=== PATIENT | male | born 1955 | race Caucasian/White ===

== ENCOUNTER 2023-09-05 16:50 | Inpatient (IN) ==
--- NOTE | 2023-09-05 17:04 | ED Triage Note ---
Date of Service September 05, 2023 Provider in Triage Author: Columba Marx History of Present Illness This patient was briefly evaluated while in triage. An abbreviated physical exam was performed. This patient is a 68-year-old Male who presents to the ED for evaluation of an ileus. He was seen at [facility] ER yesterday and had CT scan that showed an ileus. Saw his PCP today who felt that he needed to be admitted b/c he was not moving his bowels or passing gas. Having worsening abdominal pain. No nausea or vomiting. Physical Exam GENERAL: Non-toxic and in no acute distress. HEENT: Pupils equal. No obvious scleral icterus. HEART: Regular rate and rhythm. LUNGS: Clear to auscultation. No accessory muscle use. ABDOMEN: Soft, mildly distended, mildly tender to palpation. No guarding or rigidity. NEURO: Alert and oriented. No obvious neurological deficits on quick neuro exam. Initial orders for labs and / or imaging were placed and patient was placed in the waiting area until a bed is available. Please see further documentation for the full ED course. MDM / Impression Impression Impression: Ileus
--- NOTE | 2023-09-05 17:28 | XRay Report ---
SINGLE VIEW CHEST CLINICAL HISTORY: Generalized abdominal pain. FINDINGS: A PA chest radiograph is obtained. No prior studies are available for comparison at the nehemias e of dictation. The cardiomediastinal silhouette is unremarkable. The lungs and pleural spaces are cl ear. No pneumothorax is seen. The bony thorax is grossly intact. Fusion hardware is noted in the lowe r cervical spine. IMPRESSION: No active disease in the chest. ACT 112: Negative or not required by law. Electronically signed by: Carter De La Garza M.D. 09/05/2023 5:27 PM
[2023-09-05] MEDS: SODIUM CHLORIDE 0.9% 500 ML IV STA (18:16)
[2023-09-05 18:41] LABS: Basophils # (auto) 0.01 K/uL (0.00-0.20); Basophils % (auto) 0.2 %; Eosinophils # (auto) 0.13 K/uL (0.00-0.50); Hematocrit (blood only) 39.2 % (42.0-52.0); Hemoglobin 13.7 g/dl (14.0-18.0); Immature Granulocytes # (auto) 0.01 K/uL (0.01-0.20); Immature Granulocytes % (auto) 0.2 %; Lymphocytes # (auto) 1.39 K/uL (1.20-3.40); Lymphocytes % (auto) 32.6 %; Mean Corpuscular Hemoglobin 31.1 pg (25.0-34.0); Mean Corpuscular Hgb Conc 34.9 g/dL (32.0-36.0); Mean Corpuscular Volume 88.9 fL (80.0-100.0); Mean Platelet Volume 8.9 fL (9.4-12.4); Monocytes # (auto) 0.37 K/uL (0.11-0.59); Monocytes % (auto) 8.7 %; Neutrophils # (auto) 2.36 K/uL (1.40-6.50); Neutrophils % (auto) 55.3 %; Platelet Count 160 K/uL (130-400); RDW Coefficient of Variation 12.3 % (11.5-14.5); RDW Standard Deviation 40.3 fL (36.4-46.3); Red Blood Count 4.41 M/uL (4.70-6.10); White Blood Count 4.27 K/ul (4.8-10.8)
[2023-09-05 19:00] LABS: Albumin Globulin Ratio 1.6 (0.9-2); Albumin Level 4.6 gm/dl (3.4-5.0); BUN Creatinine Ratio 14.1 (10-20); Calcium 9.8 mg/dl (8.6-10.3); Creatinine Clr Calc Pharmacy 88.3 ml/min; Est GFR (African American) 105.2 ml/min; Est GFR (Non-African American) 90.8 ml/min; Globulin 2.8 gm/dl (2.5-4.0); Potassium 3.9 mmol/L (3.5-5.1); Total Protein 7.4 gm/dl (6.0-8.3)
[2023-09-05 19:05] LABS: Troponin I High Sensitivity 4.3 pg/ml (0-20)
--- NOTE | 2023-09-05 19:18 | XRay Report ---
KUB CLINICAL HISTORY: Generalized abdominal pain. FINDINGS: 2 AP supine abdominal radiographs are obtained. No prior studies are available for comparis on at the time of dictation. Moderate fecal retention is seen throughout the colon. There is a disten ded loop of bowel in the left midabdomen which measures up to 3.5 cm. There is no evidence of high-gr sharmila obstruction. No abnormal abdominal calcifications are seen. Phleboliths are observed in the pelvi s. No evidence of intraperitoneal free air is seen on these supine images the bony structures appear intact. There is moderate lumbosacral spondylosis. IMPRESSION: 1. There is no radiographic evidence of high-grade obstruction. 2. There is nonspecific gaseous distention of a small bowel in the left midabdomen. Ileus or partial obstruction could potentially have this appearance. Clinical correlation will be required. Electronically signed by: Carter De La Garza M.D. 09/05/2023 7:17 PM
[2023-09-05 20:55] LABS: Appearance Urine Clear (Clear); Bilirubin Urine Negative (Negative); Blood Urine Negative (Negative); Color Urine Yellow; Glucose Urine UA Negative (Negative); Ketones Urine Trace (Negative); Leukocyte Esterase Urine Negative (Negative); Nitrite Urine Negative (Negative); Protein Urine Negative (Negative); Specific Gravity Urine 1.007 (1.000-1.030); Urobilinogen Urine Negative (Negative); pH Urine 6.5 (4.5-7.5)
--- NOTE | 2023-09-05 21:06 | Emergency Department Note ---
Impression & Plan Ileus ED Provider Note NAME: BONNY FELDER AGE: 68 SEX: M : 1955 ARRIVES VIA: Walk-In INFORMANT: Patient, ED PROVIDER(S): Samuel Sapp MD CHIEF COMPLAINT: Ileus HPI: This is a 68-year-old male presenting for possible ileus. Patient states that he had severe abdominal pain last night where he was on all fours having excruciating abdominal pain. He notes nausea vomiting at that time. He then went to an outside ER where he had CT of the abdomen/pelvis as well as chest. This revealed patient had a possible ileus without obvious obstruction. Otherwise there is some slight abdominal free fluid as well as mesenteric stranding which could be related to panniculitis. Patient was offered admission versus discharge. Patient elected for discharge. He notes that his symptoms today have been somewhat better however still having pain specifically with eating. He drank fluids and had excruciating abdominal pain again. He notes he still has a slight abdominal pain at this time. Otherwise no persistent nausea, vomiting. He states he has not been passing gas. Otherwise he went to his primary care physician who states he feels he was concerned and should be reevaluated in the ER. ROS: See above HPI for pertinent positives & negatives. A total of 10 systems reviewed and were otherwise negative. PAST MEDICAL HISTORY: See Below PAST SURGICAL HISTORY: See Below FAMILY HISTORY: See Below SOCIAL HISTORY: See Below HOME MEDICATIONS: See Below ALLERGIES: See Below VITALS: See Below PHYSICAL EXAMINATION: General: resting comfortably in no acute distress Head: Normocephalic and atraumatic Eyes: Normal inspection, extraocular muscles intact Ear, nose, throat: Normal external exam Neck: Normal range of motion Respiratory: lungs clear to auscultation bilaterally Cardiovascular: Regular rate/rhythm, no murmur GI: Mild distended, soft, hyperactive bowel sounds, no about rebound or guarding Extremities: nontender, moves all extremities Neuro: The patient awake and alert, appropriately conversive, no focal deficits, symmetric faces Skin: Warm, dry, and intact MEDICAL DECISION MAKING: This is a 68-year-old male presenting for possible ileus versus panniculitis. Patient notes he has had abdominal pain specifically with drinking/eating. Symptoms are slightly better but patient still having difficulty with eating. His x-ray here does reveal signs of ileus without high-grade bowel obstruction. He does have a CT scan of the abdomen/pelvis with results as stated in HPI. His blood work is reassuring with only slight hyponatremia, no transaminitis or lipase elevation. Patient given fluid bolus here. Will admit as patient request admission at this time due to feeling unwell/able to eat and ileus. Chest Xray independently interpreted by me showing no pneumothorax, focal opacity, or pleural effusions Differential diagnosis: SBO, ileus, pancreatitis, volvulus, mesenteric ischemia ER treatment provided: See below Diagnostics interpreted by me: ECG: None Cardiac Monitoring: An order was placed for continuous cardiac monitoring. The monitor shows a rate of 67 with sinus rhythm. Laboratory studies: As stated above and show below. Imaging studies: See below. Past Med/Surg History Surgical History History of spinal fusion cervical spinal fusion. [facility]. 2013 Family History Father Cancer Heart disease Brother Heart disease Diabetes Cancer Social History Smoking Status: Never smoker Hx Alcohol Use: Yes (2-3 beers 2-3 times a week) Alcohol type: beer Alcohol Intake Frequency: 2-3 x/Week Hx Substance Use: No Feels Safe at Home: Yes Allergies Allergies Allergy/AdvReac Type Severity Reaction Status Date / Time No Known Allergies Allergy Verified 09/05/23 17:04 Home Meds Home Medications Medication Instructions Recorded Confirmed ascorbic acid (vitamin C) 1,000 mg 1,000 mg PO DAILY 09/05/23 09/05/23 tablet (Vitamin C) cholecalciferol (vitamin D3) 25 25 mcg PO DAILY 09/05/23 09/05/23 mcg (1,000 unit) tablet (Vitamin D3) omega-3 fatty acids 1,000 mg 1,000 mg PO DAILY 09/05/23 09/05/23 capsule polyethylene glycol 3350 17 gram 17 g PO DAILY PRN Constipation 09/05/23 09/05/23 oral powder packet (Miralax) sennosides 8.6 mg tablet (Senokot) 8.6 mg PO DAILY PRN Constipation 09/05/23 09/05/23 Results & Data (ED) Vital Signs Vital Signs - 24 hr 09/05/23 17:00 09/05/23 20:29 09/05/23 20:29 Temperature 36.5 C Temperature Source Temporal Artery Scan Pulse Rate 72 Pulse Rate [Apical] 68 Pulse Rhythm [Apical] Regular Respiratory Rate 16 18 Respiratory Effort / Characteristics Non-Labored Spontaneous Respiratory Depth Normal Respiratory Pattern Regular Blood Pressure 174/95 H Blood Pressure [Right Arm] 180/90 H Blood Pressure Mean 121 Blood Pressure Mean [Right Arm] 120 Blood Pressure Position [Right Arm] Lying Pulse Oximetry 98 98 98 Oxygen Delivery Method Room Air Room Air Room Air Sepsis New/Unexplained Change in Mental Status No Sepsis Action Taken by Nursing No Action Required 09/05/23 20:45 Temperature Temperature Source Pulse Rate 71 Pulse Rate [Apical] Pulse Rhythm [Apical] Respiratory Rate Respiratory Effort / Characteristics Respiratory Depth Respiratory Pattern Blood Pressure Blood Pressure [Right Arm] Blood Pressure Mean Blood Pressure Mean [Right Arm] Blood Pressure Position [Right Arm] Pulse Oximetry Oxygen Delivery Method Sepsis New/Unexplained Change in Mental Status Sepsis Action Taken by Nursing Laboratory Data 09/05/23 18:12 09/05/23 18:12 Lab Results 09/05/23 09/05/23 Range/Units 18:12 19:45 WBC 4.27 L (4.8-10.8) K/ul RBC 4.41 L (4.70-6.10) M/uL Hgb 13.7 L (14.0-18.0) g/dl Hct 39.2 L (42.0-52.0) % MCV 88.9 (80.0-100.0) fL MCH 31.1 (25.0-34.0) pg MCHC 34.9 (32.0-36.0) g/dL RDW Std Deviation 40.3 (36.4-46.3) fL RDW Coeff of Bridget 12.3 (11.5-14.5) % Plt Count 160 (130-400) K/uL MPV 8.9 L (9.4-12.4) fL Immature Gran % (Auto) 0.2 % Neut % (Auto) 55.3 % Lymph % (Auto) 32.6 % Atlantic % (Auto) 8.7 % Eos % (Auto) 3.0 % Baso % (Auto) 0.2 % Neut # (Auto) 2.36 (1.40-6.50) K/uL Lymph # (Auto) 1.39 (1.20-3.40) K/uL Atlantic # (Auto) 0.37 (0.11-0.59) K/uL Eos # (Auto) 0.13 (0.00-0.50) K/uL Baso # (Auto) 0.01 (0.00-0.20) K/uL Immature Gran # (Auto) 0.01 (0.01-0.20) K/uL Sodium 133 L (136-145) mmol/L Potassium 3.9 (3.5-5.1) mmol/L Chloride 98 (98-107) mmol/L Carbon Dioxide 29 (21-32) mmol/L Anion Gap 6 (3-11) BUN 12 (6-23) mg/dl Creatinine 0.85 (0.6-1.4) mg/dl Est Cr Clr Drug Dosing 88.3 ml/min Est GFR ( Amer) 105.2 ml/min Est GFR (Non-Af Amer) 90.8 ml/min BUN/Creatinine Ratio 14.1 (10-20) Glucose 92 (70-99(Fasting)) mg/dl Calcium 9.8 (8.6-10.3) mg/dl Total Bilirubin 1.0 (0.2-1.0) mg/dl AST 26 (13-39) U/L ALT 25 (7-52) U/L Alkaline Phosphatase 56 (34-104) U/L Troponin I High Sens 4.3 (0-20) pg/ml Total Protein 7.4 (6.0-8.3) gm/dl Albumin 4.6 (3.4-5.0) gm/dl Globulin 2.8 (2.5-4.0) gm/dl Albumin/Globulin Ratio 1.6 (0.9-2) Lipase 24 (11-82) U/L Urine Color Yellow Urine Appearance Clear (Clear) Urine pH 6.5 (4.5-7.5) Ur Specific Kennan 1.007 (1.000-1.030) Urine Protein Negative (Negative) Urine Glucose (UA) Negative (Negative) Urine Ketones Trace H (Negative) Urine Blood Negative (Negative) Urine Nitrite Negative (Negative) Urine Bilirubin Negative (Negative) Urine Urobilinogen Negative (Negative) Ur Leukocyte Esterase Negative (Negative) Administered Medications Doxycycline Hyclate 100 mg/ (Dextrose) 100 mls @ 50 mls/hr IV NOW STA Stop: 09/06/23 00:21 Last Admin: 09/05/23 23:22 Dose: 50 mls/hr Documented By: HUBERT Discontinued Medications Hydralazine HCl (Hydralazine Hcl 20 Mg/Ml Vial) 5 mg IV NOW STA Stop: 09/05/23 21:19 Last Admin: 09/05/23 21:58 Dose: Not Given Documented By: HUBERT Sodium Chloride (Nss) 500 mls @ 999 mls/hr IV .Q31M STA Stop: 09/05/23 17:34 Last Infusion: 09/05/23 20:28 Dose: Infused Documented By: Admin: 09/05/23 18:16 Dose: 999 mls/hr Documented By: SHANTEL Imaging Data Radiologist's Impression: Chest X-Ray 09/05/23 17:04 SINGLE VIEW CHEST CLINICAL HISTORY: Generalized abdominal pain. FINDINGS: A PA chest radiograph is obtained. No prior studies are available for comparison at the time of dictation. The cardiomediastinal silhouette is unremarkable. The lungs and pleural spaces are clear. No pneumothorax is seen. The bony thorax is grossly intact. Fusion hardware is noted in the lower cervical spine. IMPRESSION: No active disease in the chest. ACT 112: Negative or not required by law. Electronically signed by: Carter De La Garza M.D. 09/05/2023 5:27 PM KUB X-Ray 09/05/23 17:04 KUB CLINICAL HISTORY: Generalized abdominal pain. FINDINGS: 2 AP supine abdominal radiographs are obtained. No prior studies are available for comparison at the time of dictation. Moderate fecal retention is seen throughout the colon. There is a distended loop of bowel in the left midabdomen which measures up to 3.5 cm. There is no evidence of high-grade obstruction. No abnormal abdominal calcifications are seen. Phleboliths are observed in the pelvis. No evidence of intraperitoneal free air is seen on these supine images the bony structures appear intact. There is moderate lumbosacral spondylosis. IMPRESSION: 1. There is no radiographic evidence of high-grade obstruction. 2. There is nonspecific gaseous distention of a small bowel in the left midabdomen. Ileus or partial obstruction could potentially have this appearance. Clinical correlation will be required. Electronically signed by: Carter De La Garza M.D. 09/05/2023 7:17 PM Discharge Plan Visit Data Chief Complaint: Constipation Stated Complaint: ELLIES/COLLEN, ABD PAIN, CONSTIPATION ED Provider: Samuel Sapp Discharge Problem: Ileus Discharge Instructions Interventions: ED Discharge Assessment Last Done: 09/05/23 23:53
--- NOTE | 2023-09-05 21:20 | History & Physical Report ---
Date of Service September 05, 2023 Assessment & Plan (1) Abdominal pain: (2) Ileus: (3) Elevated blood pressure reading: Plan: HPI, ROS, PE completed by myself, Liz Tabor PA-C Assessment and Plan per Dr Thurman. See addendum. History of Present Illness Chief Complaint: abdominal pain Primary Care Provider: RICK MOTA Patient is 68 year old male without significant PMH presented to ER with c/o abdominal pain x 1 day. History obtained from patient and patient's daughter. Patient states yesterday had 1 bowel movement. Reports later in the day started with mid abdominal pain that he describes as sharp. Wells like pain radiated to back. He denies any nausea or vomiting. Patient was seen at [facility] in [place] early hours of 09/05/2023. Patient was diagnosed with ileus and reports was given option for admission or discharge. Patient states she was to be discharged home. Since being home reports continued abdominal pain. He tried sipping on water however had increased abdominal pain. Patient denies any vomiting. Has not been passing flatus. He has not had any BM today. Has not eaten since 18:00 on 09/04/23. With no improvement of his symptoms he decided to return to ER for further evaluation. Patient states his daughter lives in [facility] so decided to come to [facility] for evaluation. Denies fever/chills, diaphoresis, PALOMINO, dizziness, syncope, vision changes, neck pain, CP, SOB, orthopnea, palpitations, cough, sore throat, choking, otalgia, rhinorrhea, paresthesias, weakness, extremity weakness, extremity edema, rashes, urinary symptoms. Patient has prior ER imaging reports for review: 09/05/23 CTA chest impression: No PE, noncalcified nodule in right upper lobe 09/05/2023: CTA abdomen pelvis impression: No evidence of abdominal aortic dissection or aneurysm. Mildly prominent fluid-filled small bowel loops in the abdomen, which may represent ileus. Small amount of free fluid in the pelvis. Mild nonspecific mesentery fat stranding in the mid abdomen, possibility of panniculitis cannot be excluded Labs at that time without leukocytosis and lactate and lipase WNL. Allergies Allergy/AdvReac Type Severity Reaction Status Date / Time No Known Allergies Allergy Verified 09/05/23 17:04 Home Medications Medication Instructions Recorded Confirmed Type ascorbic acid (vitamin C) 1,000 mg 1,000 mg PO DAILY 09/05/23 09/05/23 History tablet (Vitamin C) cholecalciferol (vitamin D3) 25 25 mcg PO DAILY 09/05/23 09/05/23 History mcg (1,000 unit) tablet (Vitamin D3) omega-3 fatty acids 1,000 mg 1,000 mg PO DAILY 09/05/23 09/05/23 History capsule polyethylene glycol 3350 17 gram 17 g PO DAILY PRN Constipation 09/05/23 09/05/23 History oral powder packet (Miralax) sennosides 8.6 mg tablet (Senokot) 8.6 mg PO DAILY PRN Constipation 09/05/23 09/05/23 History Past Med/Surg History Surgical History History of spinal fusion cervical spinal fusion. [facility]. 2013 Family History Father Cancer Heart disease Brother Heart disease Diabetes Cancer Social History Smoking Status: Never smoker Hx Alcohol Use: Yes (2-3 beers 2-3 times a week) Alcohol type: beer Alcohol Intake Frequency: 2-3 x/Week Hx Substance Use: No Current Living Situation: Alone Feels Safe at Home: Yes Review of Systems Review of Systems: All systems reviewed & are unremarkable except as noted in HPI & below Physical Exam Physical Exam: General: no distress, WDWN Head: normocephalic, atraumatic Eyes: conjunctiva non-injected, anicteric ENT: normal inspection external ears, nose, mucous membranes moist Neck: supple, trachea midline Lungs: clear, no respiratory distress, no wheezing/rhonchi/rales CV: RRR, no murmur, no pretibial edema Abd: hypoactive BS, soft, +tenderness to palpation epigastric and periumbilical region without rebound or guarding Ext: no cyanosis, no calf tenderness Neuro: A&O x 3, no focal deficits noted, normal affect Skin: warm, dry Results & Data Results & Data Vital Signs (Past 12 Hours) Vital Signs Temp Pulse Pulse Resp BP BP Pulse Ox 09/05/23 20:45 71 09/05/23 20:29 98 09/05/23 20:29 68 18 180/90 H 98 09/05/23 17:00 36.5 C 72 16 174/95 H 98 O2 Del Method 09/05/23 20:45 09/05/23 20:29 Room Air 09/05/23 20:29 Room Air 09/05/23 17:00 Room Air Laboratory Results Short CBC 09/05/23 Range/Units 18:12 WBC 4.27 L (4.8-10.8) K/ul Hgb 13.7 L (14.0-18.0) g/dl Hct 39.2 L (42.0-52.0) % Plt Count 160 (130-400) K/uL BMP 09/05/23 18:12 Sodium 133 L Potassium 3.9 Chloride 98 Carbon Dioxide 29 BUN 12 Creatinine 0.85 Glucose 92 Calcium 9.8 Liver Function 09/05/23 Range/Units 18:12 Total Bilirubin 1.0 (0.2-1.0) mg/dl AST 26 (13-39) U/L ALT 25 (7-52) U/L Alkaline Phosphatase 56 (34-104) U/L Albumin 4.6 (3.4-5.0) gm/dl Urine 09/05/23 Range/Units 19:45 Urine Color Yellow Urine Appearance Clear (Clear) Urine pH 6.5 (4.5-7.5) Ur Specific Marlow 1.007 (1.000-1.030) Urine Protein Negative (Negative) Urine Glucose (UA) Negative (Negative) Diagnostic Findings Chest X-Ray 09/05/23 17:04 SINGLE VIEW CHEST CLINICAL HISTORY: Generalized abdominal pain. FINDINGS: A PA chest radiograph is obtained. No prior studies are available for comparison at the time of dictation. The cardiomediastinal silhouette is unremarkable. The lungs and pleural spaces are clear. No pneumothorax is seen. The bony thorax is grossly intact. Fusion hardware is noted in the lower cervical spine. IMPRESSION: No active disease in the chest. ACT 112: Negative or not required by law. Electronically signed by: Carter De La Garza M.D. 09/05/2023 5:27 PM KUB X-Ray 09/05/23 17:04 KUB CLINICAL HISTORY: Generalized abdominal pain. FINDINGS: 2 AP supine abdominal radiographs are obtained. No prior studies are available for comparison at the time of dictation. Moderate fecal retention is seen throughout the colon. There is a distended loop of bowel in the left midabdomen which measures up to 3.5 cm. There is no evidence of high-grade obstruction. No abnormal abdominal calcifications are seen. Phleboliths are observed in the pelvis. No evidence of intraperitoneal free air is seen on these supine images the bony structures appear intact. There is moderate lumbosacral spondylosis. IMPRESSION: 1. There is no radiographic evidence of high-grade obstruction. 2. There is nonspecific gaseous distention of a small bowel in the left midabdomen. Ileus or partial obstruction could potentially have this appearance. Clinical correlation will be required. Electronically signed by: Carter De La Garza M.D. 09/05/2023 7:17 PM Supervising Physician Co-Signing Physician Notes IM ATTENDING : Patient seen and examined. History obtained from patient and records. Concur with salient points upon review of preceding documentation by Ms. Liz Tabor PA-C. I take responsibility for plan of care below. FINAL ASSESSMENT AND PLAN as follows : Abdominal pain Multifactorial ileus Possible panniculitis on CT, patient nontoxic Situational hypertension secondary to above LBBB, patient unaware of previous diagnosis OBS Medical telemetry given BP elevation and LBBB of unknown duration Analgesia Clonidine as needed SBP greater than 160 TTE Re: LBBB Bowel regimen Doxycycline for possible panniculitis on CT DVT prophylaxis. Lovenox subcu Full code Text document was generated using [employer] voice recognition software. It may contain grammatical or spelling errors. Kindly contact undersigned for clarification of any documentation item in question.
[2023-09-05] MEDS: hydrALAZINE HCL 20 MG/ML VIAL IV STA (21:58)
[2023-09-05] MEDS ORDERED: ACETAMINOPHEN 325 MG TAB PO PRN (22:23)
[2023-09-05] MEDS ORDERED: POLYETHYLENE (MIRALAX) 17 GM PACK PO PRN (22:23)
[2023-09-05] MEDS ORDERED: traMADol HCL 50 MG TABLET PO PRN (22:23)
[2023-09-05] MEDS ORDERED: PROMETHAZINE HCL 6.25 MG in SODIUM CHLORIDE 0.9% 50 ML IV PRN (22:23)
[2023-09-05] MEDS: DOXYCYCLINE HYCLATE 100 MG in DEXTROSE 5% MINI-B 100 ML IV STA (23:22)
[2023-09-06] MEDS: bisacodyL 10 MG SUPP PR STA (00:01)
[2023-09-06] MEDS: POLYETHYLENE (MIRALAX) 17 GM PACK PO STA (00:01)
[2023-09-06] MEDS: NSS + 20MEQ KCL 20 MEQ/1,000 ML BAG IV STA (01:33)
[2023-09-06 04:15] LABS: Basophils # (auto) 0.02 K/uL (0.00-0.20); Basophils % (auto) 0.6 %; Eosinophils # (auto) 0.14 K/uL (0.00-0.50); Eosinophils % (auto) 4.3 %; Hematocrit (blood only) 37.1 % (42.0-52.0); Immature Granulocytes # (auto) 0.01 K/uL (0.01-0.20); Immature Granulocytes % (auto) 0.3 %; Lymphocytes # (auto) 1.44 K/uL (1.20-3.40); Lymphocytes % (auto) 44.2 %; Mean Corpuscular Volume 88.3 fL (80.0-100.0); Mean Platelet Volume 8.7 fL (9.4-12.4); Monocytes % (auto) 9.2 %; Neutrophils # (auto) 1.35 K/uL (1.40-6.50); Neutrophils % (auto) 41.4 %; Platelet Count 147 K/uL (130-400); RDW Coefficient of Variation 12.4 % (11.5-14.5); RDW Standard Deviation 39.5 fL (36.4-46.3); White Blood Count 3.26 K/ul (4.8-10.8)
[2023-09-06 04:29] LABS: BUN Creatinine Ratio 13.4 (10-20); Calcium 8.9 mg/dl (8.6-10.3); Creatinine Clr Calc Pharmacy 91.5 ml/min; Est GFR (African American) 106.8 ml/min; Est GFR (Non-African American) 92.1 ml/min; Potassium 3.9 mmol/L (3.5-5.1)
[2023-09-06] MEDS: DOCUSATE SODIUM/SENNA 50/8.6MG TAB PO STA (04:33)
--- NOTE | 2023-09-06 05:42 | Communication Note ---
Date of Service: September 06, 2023 Patient desaturating to 80s with apneic episodes during sleep as per RN. AP Probable OLIVE CPAP at bedtime for now Outpatient sleep study
[2023-09-06] MEDS: DOXYCYCLINE HYCLATE 100 MG CAP PO SCH (09:42)
[2023-09-06] MEDS: DOCUSATE SODIUM/SENNA 50/8.6MG TAB PO SCH (09:42)
[2023-09-06] MEDS: ENOXAPARIN INJ 40 MG/0.4 ML SYR SQ SCH (09:43)
--- NOTE | 2023-09-06 14:30 | Hospitalist Progress Note ---
Date of Service September 06, 2023 Assessment & Plan (1) Abdominal pain: (2) Ileus: (3) Elevated blood pressure reading: Plan: 68-year-old male without significant PMH came in with complaint of abdominal pain for 1 day. Reports abdominal pain exacerbated by eating at home, denies any nausea or vomiting. Reports moving bowels 1 day prior to arrival. Patient denied fever or chills or diaphoresis or chest pain at presentation. He had recent ER evaluation in an outside facility. 09/05/23 CTA chest impression: No PE, noncalcified nodule in right upper lobe 09/05/2023: CTA abdomen pelvis impression: No evidence of abdominal aortic dissection or aneurysm. Mildly prominent fluid-filled small bowel loops in the abdomen, which may represent ileus. Small amount of free fluid in the pelvis. Mild nonspecific mesentery fat stranding in the mid abdomen, possibility of panniculitis cannot be excluded He is being managed for the following: Abdominal pain ileus Possible panniculitis on CT, patient nontoxic Patient tolerating clear liquid diet today, more bowel today/reports hard stool Continue with bowel regimen, uptitrate as necessary. Encourage ambulation and fluid intake. Patient reports improvement in his abdominal pain. Will continue to monitor in the line of ideas. For panniculitis, patient started on doxycycline 09/05, continue. Follow. Situational hypertension: secondary to above. Blood pressure better controlled now. LBBB, patient unaware of previous diagnosis, ECHO w/ EF of 50-55%. Regional wall motion wnl. Abn septal motion consistent w/ LBBB. c/w telemetry. pt w/ no chest pain. trop neg. 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 Will get nocturnal pulse oximetry. Sleep study as an outpatient. DVT prophylaxis. Lovenox subcu Full code Text document was generated using [employer] voice recognition software. It may contain grammatical or spelling errors. Kindly contact undersigned for clarification of any documentation item in question. Admission and Anticipated Discharge Date Admission Date: September 05, 2023 Subjective Patient was seen and examined at bedside. Patient was lying in bed, on room air, NAD, resting comfortably. Patient reports improvement in his mid and right lower belly pain. Patient reports tolerating clear liquid diet. Will advance the diet to full liquid. Patient reports moving bowel in the a.m. but had very hard stool. Continue with bowel regimen. Patient denies any febrile illness or headache or dizziness or chest pain. Physical Exam Physical Exam: General: no distress, WDWN Head: normocephalic, atraumatic Eyes: conjunctiva non-injected, anicteric ENT: normal inspection external ears, nose, mucous membranes moist Neck: supple, trachea midline Lungs: clear, no respiratory distress, no wheezing/rhonchi/rales CV: RRR, no murmur, no pretibial edema Abd: hypoactive BS, soft, +tenderness to palpation mid and RLQ abdomen - minimal (improved per pt) Ext: no cyanosis, no calf tenderness Neuro: A&O x 3, no focal deficits noted, normal affect Skin: warm, dry Results & Data Results & Data Vital Signs (Past 12 Hours) Vital Signs Pulse Pulse Resp BP BP Pulse Ox O2 Del Method 09/06/23 12:28 66 18 139/78 97 Room Air 09/06/23 09:44 72 18 138/85 97 Room Air 09/06/23 07:06 75 09/06/23 06:00 113/74 09/06/23 05:00 68 13 92 09/06/23 04:00 63 12 92 09/06/23 03:00 70 12 95 09/06/23 02:59 142/79 H 09/06/23 02:59 67 17 96
[2023-09-07 07:23] LABS: Hematocrit (blood only) 38.5 % (42.0-52.0); Hemoglobin 13.5 g/dl (14.0-18.0); Mean Corpuscular Hgb Conc 35.1 g/dL (32.0-36.0); Mean Corpuscular Volume 88.3 fL (80.0-100.0); Mean Platelet Volume 8.5 fL (9.4-12.4); Platelet Count 147 K/uL (130-400); RDW Coefficient of Variation 12.3 % (11.5-14.5); RDW Standard Deviation 40.2 fL (36.4-46.3); Red Blood Count 4.36 M/uL (4.70-6.10); White Blood Count 3.36 K/ul (4.8-10.8)
[2023-09-07 07:48] LABS: BUN Creatinine Ratio 10.5 (10-20); Calcium 9.1 mg/dl (8.6-10.3); Creatinine Clr Calc Pharmacy 87.2 ml/min; Est GFR (African American) 104.7 ml/min; Est GFR (Non-African American) 90.4 ml/min; Magnesium 1.9 mg/dl (1.7-2.4); Phosphorus 2.8 mg/dl (2.5-4.9)
--- NOTE | 2023-09-07 16:19 | Hospitalist Progress Note ---
Date of Service September 07, 2023 Assessment & Plan (1) Abdominal pain: (2) Ileus: (3) Elevated blood pressure reading: Plan: 68-year-old male without significant PMH came in with complaint of abdominal pain for 1 day. Reports abdominal pain exacerbated by eating at home, denies any nausea or vomiting. Reports moving bowels 1 day prior to arrival. Patient denied fever or chills or diaphoresis or chest pain at presentation. He had recent ER evaluation in an outside facility. 09/05/23 CTA chest impression: No PE, noncalcified nodule in right upper lobe 09/05/2023: CTA abdomen pelvis impression: No evidence of abdominal aortic dissection or aneurysm. Mildly prominent fluid-filled small bowel loops in the abdomen, which may represent ileus. Small amount of free fluid in the pelvis. Mild nonspecific mesentery fat stranding in the mid abdomen, possibility of panniculitis cannot be excluded He is being managed for the following: Abdominal pain ileus Possible panniculitis on CT, patient nontoxic Patient tolerating full liquid diet today, reports liquid stool; denies belly pain, adv diet to low fiber. XR kub in AM, sent stool studies. Encourage ambulation and fluid intake. Hold Bowel regimen for now. For panniculitis, patient started on doxycycline 09/05, continue. Follow. Situational hypertension: secondary to above. Blood pressure better controlled now. LBBB, patient unaware of previous diagnosis, ECHO w/ EF of 50-55%. Regional wall motion wnl. Abn septal motion consistent w/ LBBB. c/w telemetry. pt w/ no chest pain. trop neg. Pt has been made aware, pt to establish cardio on dc. 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 Nocturnal pulse oximetry 09/05-09/06 reviewed. Sleep study as an outpatient. DVT prophylaxis. Lovenox subcu Full code updated pt's dtr over the phone 09/06, answered all her questions Text document was generated using [employer] voice recognition software. It may contain grammatical or spelling errors. Kindly contact undersigned for clarification of any documentation item in question. Admission and Anticipated Discharge Date Admission Date: September 07, 2023 Subjective Patient was seen and examined at bedside. Patient was lying in bed, on room air, NAD, resting comfortably. Patient reports improvement in his mid and right lower belly pain. Patient reports tolerating full liquid diet. Patient reports he moved bowels yesterday followed by liquidy bowel movement. He continues to have liquidy bowel movement today. Will send stool studies and repeat KUB x-ray in a.m. Will hold bowel regimen for now. Diet advanced to soft low fiber, patient with no increased belly pain. Patient denies any febrile illness or headache or dizziness or chest pain. Physical Exam Physical Exam: General: no distress, WDWN Head: normocephalic, atraumatic Eyes: conjunctiva non-injected, anicteric ENT: normal inspection external ears, nose, mucous membranes moist Neck: supple, trachea midline Lungs: clear, no respiratory distress, no wheezing/rhonchi/rales CV: RRR, no murmur, no pretibial edema Abd: hypoactive BS, soft, no tenderness to palpation mid and RLQ abdomen Ext: no cyanosis, no calf tenderness Neuro: A&O x 3, no focal deficits noted, normal affect Skin: warm, dry Results & Data Results & Data Vital Signs (Past 12 Hours) Vital Signs Temp Pulse Resp BP Pulse Ox O2 Del Method 09/07/23 15:20 36.5 C 74 16 172/87 H 98 Room Air 09/07/23 10:33 36.5 C 78 19 153/83 H 96 Room Air 09/07/23 08:16 36.7 C 64 19 153/78 H 98 Room Air
--- NOTE | 2023-09-08 06:00 | Electrocardiogram Report ---
Test Reason : Blood Pressure : / mmHG Vent. Rate : 074 BPM Atrial Rate : 074 BPM P-R Int : 186 ms QRS Dur : 146 ms QT Int : 440 ms P-R-T Axes : 038 -18 085 degrees QTc Int : 488 ms Normal sinus rhythm Left bundle branch block Abnormal ECG No previous ECGs available Confirmed by Saul Ovalles ([id number]) on 09/08/2023 5:59:53 AM Referred By: REFERRED SELF Confirmed By:Saul Ovalles
--- NOTE | 2023-09-08 14:18 | XRay Report ---
XR KUB/Abdomen 1 view CLINICAL HISTORY: fu ileus TECHNIQUE: 1 view of the abdomen was obtained. Comparison: Comparison is made to abdomen radiograph 09/05/2023 FINDINGS: Lung bases are unremarkable. Degenerative changes are seen in the visualized skeleton. The bowel gas pattern is nonobstructive. A moderate amount of stool is noted within the large bowel. IMPRESSION: Nonobstructive bowel gas pattern. Previously noted ileus appears resolved. ACT 112: Negative or not required by law. Electronically signed by: Alhaji Davis M.D. 09/08/2023 2:17 PM
--- NOTE | 2023-09-08 14:29 | Hospitalist Progress Note ---
Date of Service September 08, 2023 Assessment & Plan (1) Abdominal pain: Plan: 68-year-old male without significant PMH came in with complaint of abdominal pain for 1 day. Reports abdominal pain exacerbated by eating at home, denies any nausea or vomiting. Reports moving bowels 1 day prior to arrival. Patient denied fever or chills or diaphoresis or chest pain at presentation. He had recent ER evaluation in an outside facility. 09/05/23 CTA chest impression: No PE, noncalcified nodule in right upper lobe 09/05/2023: CTA abdomen pelvis impression: No evidence of abdominal aortic dissection or aneurysm. Mildly prominent fluid-filled small bowel loops in the abdomen, which may represent ileus. Small amount of free fluid in the pelvis. Mild nonspecific mesentery fat stranding in the mid abdomen, possibility of panniculitis cannot be excluded Abdominal pain Possible panniculitis on CT, patient nontoxic Was kept on n.p.o. and got intravenous fluids and symptomatic management Started on intravenous antibiotic Subsequently he tolerated full liquid and later on that was advanced as tolerated Has had bowel movement today without any abdominal symptoms He wants to go home and he will be discharged home this afternoon For panniculitis, patient started on doxycycline 09/05, continue. Follow. (2) Ileus: Plan: Noted to have ileitis on KUB Initially he was on n.p.o. Ileitis improved subsequently and he was tolerating regular diet as of this morning He has had bowel movement KUB did show nonobstructive findings He will be discharged home this afternoon (3) Elevated blood pressure reading: Plan: Situational hypertension: secondary to above. Blood pressure better controlled now. Blood pressure remains mildly elevated but has been improving LBBB, patient unaware of previous diagnosis, ECHO w/ EF of 50-55%. Regional wall motion wnl. Abn septal motion consistent w/ LBBB. c/w telemetry. pt w/ no chest pain. trop neg. Pt has been made aware, pt to establish cardio on dc. 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 Nocturnal pulse oximetry 09/05-09/06 reviewed. Sleep study as an outpatient. DVT prophylaxis. Lovenox subcu Full code updated pt's dtr over the phone 09/06, answered all her questions Text document was generated using Dragon voice recognition software. It may contain grammatical or spelling errors. Kindly contact undersigned for clarification of any documentation item in question. Admission and Anticipated Discharge Date Admission Date: September 07, 2023 Subjective 09/08/2023 The patient was seen and examined in medical telemetry unit He has been feeling much better Denies any abdominal pain, nausea and or vomiting He has had his bowel movement KUB did not show any obstruction He wants to go home and he will be discharged Review of Systems Review of Systems: All systems reviewed and are unremarkable except as noted below Physical Exam Physical Exam: Sitting on a chair without any acute distress Constitutional: well developed and well nourished; not ill appearing Eyes: PERRL, conjunctivae normal, anicteric sclerae ENMT: external ear and nose normal, oropharynx normal Neck: trachea midline, no thyromegaly Respiratory: no respiratory distress Auscultation: + crackles; + lungs not clear to auscultation Cardiovascular: Rate/Rhythm: regular rate, regular rhythm and + bradycardic Heart Sounds: normal S1 and normal S2; no murmur Extremities: no edema Gastrointestinal (Abdomen): Inspection/Auscultation: normal bowel sounds; abdomen not distended Percussion/Palpation: abdomen soft; abdomen nontender Musculoskeletal: No acute arthritis involving any of the joint Neurologic: normal touch/pain/proprioception and moves all extremities; no focal motor deficits Psychiatric: A+Ox3, euthymic affect Lymphatic: no cervical or axillary lymphadenopathy Results & Data Results & Data Vital Signs (Past 12 Hours) Vital Signs Temp Pulse Pulse Resp BP BP Pulse Ox 09/08/23 11:03 36.4 C L 57 L 18 174/93 H 185/90 H 99 09/08/23 08:06 36.4 C L 67 15 132/82 100 09/08/23 08:00 68 09/08/23 04:06 36.8 C 73 20 125/74 95 O2 Del Method 09/08/23 11:03 Room Air 09/08/23 08:06 Room Air 09/08/23 08:00 09/08/23 04:06 Room Air Medications Administered Current Inpatient Medications Acetaminophen (Acetaminophen 325 Mg Tab) 650 mg PO QID PRN PRN Reason: pain/fever Stop: 10/05/23 22:22 Doxycycline Hyclate (Doxycycline Hyclate 100 Mg Cap) 100 mg PO BID ABBIE Stop: 09/13/23 08:59 Last Admin: 09/08/23 10:23 Dose: 100 mg Enoxaparin Sodium (Enoxaparin Inj 40 Mg/0.4 Ml Syr) 40 mg SQ QAM [facility] Stop: 10/06/23 08:59 Last Admin: 09/08/23 10:23 Dose: Not Given Promethazine HCl 6.25 mg/ (Sodium Chloride) 50.25 mls @ 201 mls/hr IV Q6H PRN PRN Reason: Nausea And Vomiting Stop: 10/05/23 22:22 Polyethylene Glycol (Polyethylene (Miralax) 17 Gm Pack) 17 gm PO DAILY PRN PRN Reason: Constipation Stop: 10/05/23 22:22 Senna/Docusate Sodium (Docusate Sodium/Senna 50/8.6mg Tab) 1 tab PO QAM [facility] Stop: 10/06/23 08:59 Last Admin: 09/07/23 07:47 Dose: 1 tab Tramadol HCl (Tramadol Hcl 50 Mg Tablet) 25 - 50 mg PO Q4H PRN PRN Reason: Pain Stop: 10/05/23 22:22
[2023-09-08 16:10] LABS: Adenovirus F 40/41 PCR Not Detected (NotDetected); Astrovirus PCR Not Detected (NotDetected); Campylobacter PCR Not Detected (NotDetected); Cryptosporidium PCR Not Detected (NotDetected); Cyclospora cayetanensis PCR Not Detected (NotDetected); Entamoeba histolytica PCR Not Detected (NotDetected); Enteroaggregative E.coli(EAEC) Not Detected (NotDetected); Enteropathogenic E.coli (EPEC) Not Detected (NotDetected); Enterotoxigenic E.coli (ETEC) Not Detected (NotDetected); Giardia lamblia PCR Not Detected (NotDetected); Norovirus GI/GII PCR Not Detected (NotDetected); Plesiomonas shigelloides PCR Not Detected (NotDetected); Rotavirus A PCR Not Detected (NotDetected); Salmonella PCR Not Detected (NotDetected); Sapovirus PCR Not Detected (NotDetected); Shiga-like Toxin E.coli (STEC) Not Detected (NotDetected); Shigella/Enteroinvasive E.coli Not Detected (NotDetected); Vibrio cholerae PCR Not Detected (NotDetected); Vibrio species PCR Not Detected (NotDetected); Yersinia enterocolitica PCR Not Detected (NotDetected)
--- NOTE | 2023-09-08 17:48 | Discharge Summary ---
Date of Service September 08, 2023 Admission HPI Per Admitting Provider Patient is 68 year old male without significant PMH presented to ER with c/o abdominal pain x 1 day. History obtained from patient and patient's daughter. Patient states yesterday had 1 bowel movement. Reports later in the day started with mid abdominal pain that he describes as sharp. [place] like pain radiated to back. He denies any nausea or vomiting. Patient was seen at [facility] in [place] early hours of 09/05/2023. Patient was diagnosed with ileus and reports was given option for admission or discharge. Patient states she was to be discharged home. Since being home reports continued abdominal pain. He tried sipping on water however had increased abdominal pain. Patient denies any vomiting. Has not been passing flatus. He has not had any BM today. Has not eaten since 18:00 on 09/04/23. With no improvement of his symptoms he decided to return to ER for further evaluation. Patient states his daughter lives in [facility] so decided to come to [facility] for evaluation. Denies fever/chills, diaphoresis, [place], dizziness, syncope, vision changes, neck pain, CP, SOB, orthopnea, palpitations, cough, sore throat, choking, otalgia, rhinorrhea, paresthesias, weakness, extremity weakness, extremity edema, rashes, urinary symptoms. Patient has prior ER imaging reports for review: 09/05/23 CTA chest impression: No PE, noncalcified nodule in right upper lobe 09/05/2023: CTA abdomen pelvis impression: No evidence of abdominal aortic dissection or aneurysm. Mildly prominent fluid-filled small bowel loops in the abdomen, which may represent ileus. Small amount of free fluid in the pelvis. Mild nonspecific mesentery fat stranding in the mid abdomen, possibility of panniculitis cannot be excluded Labs at that time without leukocytosis and lactate and lipase WNL. Admission Exam Per Admitting Provider Physical Exam: General: no distress, WDWN Head: normocephalic, atraumatic Eyes: conjunctiva non-injected, anicteric ENT: normal inspection external ears, nose, mucous membranes moist Neck: supple, trachea midline Lungs: clear, no respiratory distress, no wheezing/rhonchi/rales CV: RRR, no murmur, no pretibial edema Abd: hypoactive BS, soft, +tenderness to palpation epigastric and periumbilical region without rebound or guarding Ext: no cyanosis, no calf tenderness Neuro: A&O x 3, no focal deficits noted, normal affect Skin: warm, dry Principal Diagnosis Abdominal pain, panniculitis, situational hypertension Discharge Exam Sitting on a chair without any acute distress Constitutional well developed and well nourished; not ill appearing Eyes PERRL, conjunctivae normal, anicteric sclerae ENMT external ear and nose normal, oropharynx normal Neck trachea midline, no thyromegaly Respiratory no respiratory distress Auscultation: + crackles; + lungs not clear to auscultation Cardiovascular Rate/Rhythm: regular rate, regular rhythm and + bradycardic Heart Sounds: normal S1 and normal S2; no murmur Extremities: no edema Gastrointestinal (Abdomen) Inspection/Auscultation: normal bowel sounds; abdomen not distended Percussion/Palpation: abdomen soft; abdomen nontender Neurologic normal touch/pain/proprioception and moves all extremities; no focal motor deficits Psychiatric A+Ox3, euthymic affect Lymphatic no cervical or axillary lymphadenopathy Discharge Data Allergies Allergy/AdvReac Type Severity Reaction Status Date / Time No Known Allergies Allergy Verified 09/05/23 17:04 Consultations 09/05/23 21:14 ED Decision to Admit Stat Hospital Course (1) Abdominal pain: 68-year-old male without significant PMH came in with complaint of abdominal pain for 1 day. Reports abdominal pain exacerbated by eating at home, denies any nausea or vomiting. Reports moving bowels 1 day prior to arrival. Patient denied fever or chills or diaphoresis or chest pain at presentation. He had recent ER evaluation in an outside facility. 09/05/23 CTA chest impression: No PE, noncalcified nodule in right upper lobe 09/05/2023: CTA abdomen pelvis impression: No evidence of abdominal aortic dissection or aneurysm. Mildly prominent fluid-filled small bowel loops in the abdomen, which may represent ileus. Small amount of free fluid in the pelvis. Mild nonspecific mesentery fat stranding in the mid abdomen, possibility of panniculitis cannot be excluded Abdominal pain Possible panniculitis on CT, patient nontoxic Was kept on n.p.o. and got intravenous fluids and symptomatic management Started on intravenous antibiotic Subsequently he tolerated full liquid and later on that was advanced as tolerated Has had bowel movement today without any abdominal symptoms He wants to go home and he will be discharged home this afternoon For panniculitis, patient started on doxycycline 09/05, continue. Follow. (2) Ileus: Noted to have ileitis on KUB Initially he was on n.p.o. Ileitis improved subsequently and he was tolerating regular diet as of this morning He has had bowel movement KUB did show nonobstructive findings He will be discharged home this afternoon (3) Elevated blood pressure reading: Situational hypertension: secondary to above. Blood pressure better controlled now. Blood pressure remains mildly elevated but has been improving LBBB, patient unaware of previous diagnosis, ECHO w/ EF of 50-55%. Regional wall motion wnl. Abn septal motion consistent w/ LBBB. c/w telemetry. pt w/ no chest pain. trop neg. Pt has been made aware, pt to establish cardio on dc. 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 Nocturnal pulse oximetry 09/05-09/06 reviewed. Sleep study as an outpatient. DVT prophylaxis. Lovenox subcu Full code updated pt's dtr over the phone 09/06, answered all her questions Text document was generated using [employer] voice recognition software. It may contain grammatical or spelling errors. Kindly contact undersigned for clarification of any documentation item in question. Total Time Total Time Spent Total Time Spent (In Minutes): 40 minutes Discharge Plan Discharge Items Patient Disposition: Home - Self-Care Reason For Visit: HTN URG, ABD PAIN Discharge Diagnosis: Abdominal pain, panniculitis, situational hypertension Condition on Discharge: Fair Activity: Resume your previous activity Non-emergency contact: Primary Care Provider Call non-emergency contact if: you have any medication questions and your symptoms worsen Follow-up/Referrals: Caleb Thorne MD [Primary Care Provider] - (Please make an appointment with your PCP within 7 days) Diet: Heart Healthy and Low Fiber Addtl Attending Provider Instructions: Please take precautions to avoid fall Try to take regular stool softener for constipation Try to drink more fluid Finish the course of antibiotic as advised Keep appointments with the healthcare provider Pending Studies at Discharge: No Stand-Alone Forms: [employer] [place] [employer], Smoking Cessation Medications and DC Order Prescriptions: New doxycycline hyclate 100 mg Capsule 100 mg PO BID Qty: 18 0RF Continued sennosides [Senokot] 8.6 mg Tablet 8.6 mg PO DAILY PRN (Reason: Constipation) ascorbic acid (vitamin C) [Vitamin C] 1,000 mg Tablet 1,000 mg PO DAILY omega-3 fatty acids 1,000 mg Capsule 1,000 mg PO DAILY polyethylene glycol 3350 [Miralax] 17 gram Powder In Packet 17 g PO DAILY PRN (Reason: Constipation) Rx Instructions: Did not take any yet cholecalciferol (vitamin D3) [Vitamin D3] 25 mcg (1,000 unit) Tablet 25 mcg PO DAILY Discharge Orders: Discharge Order (Routine); Ordered 09/08/23 Ordered By: Charan Aldridge Admission Data Admit Date/Time: 09/07/23 13:23 Attending Provider: Charan Aldridge Admit Provider: Dayne Thurman Primary Care Provider: Caleb Thorne Other Providers: Dayne Thurman; Jeri Copeland Other Interventions: Discharge Summary Assessment (RN) Last Done: 09/08/23 14:43
== END 2023-09-08 16:15 | disposition home or self-care (01) | DRG 390 ==
LOC: ED 16:50 → EDINP 16:50 → 2N 23:53 → SUATTDRO 09-07 13:23